=== PATIENT | male | born 1970 | race Asian ===

== ENCOUNTER 2020-02-16 08:38 | Outpatient (CLI) | payer OTHER, SELFPAY ==
[2020-02-16 09:39] LABS: Cholesterol 135 mg/dL (0-200); HDL Direct 42 mg/dL; Triglycerides 151 mg/dL (<150)
[2020-02-16 09:50] LABS: LDL Cholesterol Direct 70 mg/dL
[2020-02-16 10:12] LABS: Prostate Specific Antigen 1.8 ng/mL (< OR = 4.0)
== END 2020-02-16 08:39 | disposition home or self-care (01) ==
PROVIDERS: PCP Physician Assistant; Visit Provider Physician Assistant
DX: Z00.00 Encounter for general adult medical examination without abnormal findings (principal); Z12.5 Encounter for screening for malignant neoplasm of prostate
CPT/HCPCS: 36415; 80061; 84153; 84443; G0103

== ENCOUNTER 2020-03-25 09:00 | Outpatient (RCR) | payer OTHER, SELFPAY ==
[2020-01-30 08:30] VITALS: BP_SYST 115
--- NOTE | 2020-01-30 09:27 | PTOPEVAL ---
PHYSICAL THERAPY EVALUATION AND PLAN OF CARE Thank you for referring Darwin Turpin to [facility] [place].? The patient is scheduled to be seen for therapy? 2x/week for 4-6 weeks. Please review, sign, date and return this plan of care DELPHINE. I agree with and certify that the following plan of care is medically necessary. Referring Physician Date Attending Provider: Kartik Zendejas, MD Evaluation Outpatient Past Medical History Gastrointestinal History Hx Crohn's Disease Yes: IV interventions Diagnosis tendonitis right biceps tendon , surgery Onset 01/17/2020 Subjective Information Darwin has had pain for about Query Text:As Reported By Patient/ a year without success for Family conservative intervention. Surgery on 01/17/20 and found long head of biceps tendon tear which was repaired and bone spurs were cleaned up with arthroscopy. Reports that he is doing really well. Wears sling when he is out. At home, he will use his arm carefully and currently has no restrictions. Right Shoulder Reported Pain Level 4 Pain Description Aching Pain Frequency Acute,Intermittent Lowest Pain Intensity 1 Greatest Pain Intensity 7 Other Pain Aggravating Factors raising arm up Pain Behaviors None Pain Relief Interventions Used By None Patient Interventions Used By Clinicians Ice Shoulder Range of Motion Right Shoulder Flexion - Active 80 Shoulder Flexion - Passive 130 Shoulder Abduction - Active 70 Shoulder Abduction - Passive 115 Shoulder Medial Rotation - Active L1 Query Text:Reach Behind the Back Shoulder Lateral Rotation - Active 45 Shoulder Lateral Rotation - Passive 55 Shoulder Lateral Rotation - Active [place] Query Text:Reach Behind the Head Shoulder Strength Right Shoulder Flexion Strength 3- Fair - Shoulder Extension Strength 4- Good - Shoulder Abduction Strength 3- Fair - Shoulder Medial Rotation Strength 4+ Good + Shoulder Lateral Rotation Strength 4- Good - Posture Sitting Position Posture Evaluation View Anterior Shoulder Posture (L) Forward,(R) Forward Scapula Posture (L) Depressed,(R) Depressed Arm Posture (L) Neutral,(R) Neutral PT Clinical Summary Darwin is a 49 yo male presenting to outpatient physical therapy presenting 2
--- NOTE | 2020-02-26 15:19 | PTOPEVAL ---
PHYSICAL THERAPY PLAN OF CARE UPDATE AND PROGRESS REPORT Thank you for referring Darwin Turpin to [facility].? The patient is scheduled to be seen for therapy? 2x/week for 2 weeks and 1x/week for 2 weeks. Please review, sign, date and return this plan of care DELPHINE. I agree with and certify that the following plan of care is medically necessary. Referring Physician Date Attending Provider: Kartik Zendejas, MD Assessment Status Progress Outpatient Past Medical History Gastrointestinal History Hx Crohn's Disease Yes: IV interventions Evaluation Information Problem Diagnosis tendonitis right biceps tendon , surgery Onset 01/17/2020 Subjective Information Darwin reports most daily Query Text:As Reported By Patient/ activities are without trouble Family . 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 Self Report Pain Assessment Right Shoulder(s) Reported Pain Level 3 Pain Description Soreness Pain Score Pain Score 3: Self Report Upper Extremity Range of Motion Scapular/ Shoulder Range of Motion Right Shoulder Flexion - Active 150 Shoulder Abduction - Active 140 Shoulder Medial Rotation - Active T7 Query Text:Reach Behind the Back Shoulder Lateral Rotation - Active 56 Shoulder Lateral Rotation - Active T3 Query Text:Reach Behind the Head Upper Extremity Muscle Strength Testing Scapular/Shoulder Right Shoulder Flexion Strength 4+ Good + Shoulder Abduction Strength 4+ Good + Shoulder Medial Rotation Strength 5 Normal Shoulder Lateral Rotation Strength 5 Normal Posture Sitting Position Posture Evaluation View Anterior Shoulder Posture (L) Forward,(R) Forward Scapula Posture (L) Depressed,(R) Depressed Arm Posture (L) Neutral,(R) Neutral Palpation demonstrates posterior capsule tightness that reduces after manual therapy; incision sites appear clean and healed - did instruct patient in scar massage to reduce scar puckering - noted that there is a very small open at proximal end of incision in axillary fold. Instructed in monitoring and maintaining cleanliness. PT Clinical Summary Darwin is a 49 yo male
--- NOTE | 2020-03-25 09:39 | PTOPEVAL ---
PHYSICAL THERAPY DISCHARGE NOTE Thank you for referring Darwin Turpin to [facility].? Please review, sign, date and return this plan of care DELPHINE. I agree with and certify that the following plan of care is medically necessary. Referring Physician Date Attending Provider: Kartik Zendejas, MD Discharge Self Report Self Report Pain Level 0 Pain Score Pain Score 0: Self Report Upper Extremity Range of Motion Scapular/ Shoulder Range of Motion Right Shoulder Flexion - Active 165 Shoulder Abduction - Active 163 Shoulder Medial Rotation - Active T7 Query Text:Reach Behind the Back Shoulder Lateral Rotation - Active 69 Shoulder Lateral Rotation - Active T3 Query Text:Reach Behind the Head Upper Extremity Muscle Strength Testing Scapular/Shoulder Right Shoulder Flexion Strength 5 Normal Shoulder Abduction Strength 5 Normal Shoulder Medial Rotation Strength 5 Normal Shoulder Lateral Rotation Strength 5 Normal Posture Posture Sitting Position Posture Evaluation View Anterior Shoulder Posture Neutral Scapula Posture (L) Neutral,(R) Neutral Arm Posture (L) Neutral,(R) Neutral PT Clinical Summary Darwin has met his functional and strength goals at this time following biceps tendon tenodesis. His strength measures 5/5 throughout all planes and his ROM is WNL. I recommend d/c from PT at this time, continuing HEP for a month followed up by a recreational exercise program. PT Services Indicated No Potential Barriers to Goal Achievements None Support Requirements For Optimal None [place] Patient/Caregiver Informed of Benefits/ Yes Risks of Rehabilitation Patient/Caregiver Participated in Plan Yes of Care Patient/Caregiver Agreed with Problem Yes List/POC/Goals
== END 2020-03-25 10:36 | disposition home or self-care (01) ==
LOC: ANHPT 09:00
PROVIDERS: PCP Physician Assistant; Visit Provider Orthopaedic Surgery Orthopaedic Surgery of the Spine
DX: M75.81 Other shoulder lesions, right shoulder (principal); M75.21 Bicipital tendinitis, right shoulder
CPT/HCPCS: 97110; 97140; 97161

== ENCOUNTER 2020-12-17 18:27 | Outpatient (CLI) | payer OTHER, SELFPAY ==
--- NOTE | ~2020-12-17 | XR_ITS ---
EXAMINATION: XR chest 2V EXAM DATE: 12/17/2020 18:43 INDICATION: R05 - Cough, wheezing, tired. Symptoms one week. TECHNIQUE: Frontal and lateral projections of the chest obtained and reviewed. Comparison is made to prior examination from 08/17/2016. FINDINGS: Cervical fusion hardware. The lungs are clear. There are no pleural effusions. The cardio mediastinal silhouette is within normal limits. There is no pneumothorax suspected. The bones and s oft tissues are unremarkable. IMPRESSION: No acute cardiopulmonary findings. Reviewed, dictated and finalized at location G.
== END 2020-12-17 18:28 | disposition home or self-care (01) ==
LOC: ANHIMG 18:29
PROVIDERS: PCP Physician Assistant; Visit Provider Physician Assistant
DX: R05 Cough (principal); Z98.1 Arthrodesis status
CPT/HCPCS: 71046

== ENCOUNTER 2021-06-04 09:07 | Outpatient (RCR) | payer OTHER, SELFPAY ==
[2021-06-04] MEDS: diphenhydrAMINE HCl CAP 25 MG CAPSULE PO (15:20)
[2021-06-04] MEDS: FAMOTIDINE 20 MG TABLET PO (15:20)
[2021-06-04] MEDS: ACETAMINOPHEN 325 MG TABLET 650 MG PO (15:20)
[2021-06-04 15:24] VITALS: BP 163/89; PULSE 84; RESP 18; TEMP 37.2; O2SAT 98
[2021-06-04 16:53] VITALS: BP 154/90
== END 2021-06-04 17:00 ==
LOC: AMCINF 09:07
PROVIDERS: PCP Physician Assistant; Referring Provider Physician Assistant; Visit Provider Internal Medicine Hematology & Oncology
DX: U07.1 COVID-19 (principal); D84.9 Immunodeficiency, unspecified
CPT/HCPCS: A9270; M0247; Q0247

== ENCOUNTER 2022-06-08 09:29 | Outpatient (CLI) | payer OTHER, SELFPAY ==
--- NOTE | ~2022-06-08 | XR_ITS ---
EXAMINATION: XR cervical spine 4-5V DATE: 06/08/2022 09:44 INDICATION: Cervical radiculopathy. Left-sided numbness. TECHNIQUE: 4 views of cervical spine were obtained. COMPARISON: None. FINDINGS: Bone alignment is normal. There are changes of anterior fusion procedure from C5 to C7 with healed interbody bone graft and anterior plate and screws. Vertebral body heights are normal. There is mildly decreased disc height at C4-C5. The facet joints are unremarkable. At C4-C5, there is sever e right and mild left uncovertebral joint osteoarthritis. There is mild central canal stenosis at C4- C5. No prevertebral soft tissue swelling. IMPRESSION: 1. Mild cervical spondylosis. 2. Anterior fusion procedure from C5 to C7. Reviewed, dictated and finalized at location A. 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
== END 2022-06-08 09:30 | disposition home or self-care (01) ==
PROVIDERS: PCP Physician Assistant; Visit Provider Physician Assistant
DX: M47.22 Other spondylosis with radiculopathy, cervical region (principal); Z98.1 Arthrodesis status
CPT/HCPCS: 72050

== ENCOUNTER 2022-07-22 09:48 | Outpatient (CLI) | payer OTHER, SELFPAY ==
--- NOTE | 2022-07-22 10:45 | NEURO_ITS ---
Impression: # Complains of left upper extremity discomfort. # No Carpal Tunnel Syndrome or ulnar neuropathy. # Needle/EMG exam neurogenic in left triceps muscle. # Clinical correlation recommended; Findings suggestive of Higher involvement. Motor Nerve Conduction Upper Extremities Median Nerve Conduction Velocity (m/sec) Terminal Latency (msec) Response Voltage(mV) Elbow-Wrist Wrist Elbow Wrist Right Left 53 3.1 1 1 Ulnar Nerve Conduction Velocity (m/sec) Terminal Latency (msec) Response Voltage(mV) Above Elbow Below Elbow Wrist Above Elbow Below Elbow Wrist Right Left 57 2.8 3 4 F-Wave Latency Median (ms) Ulnar (ms) Right Left 29.1 30.6 Sensory Nerve Conduction Upper Extremities Median Nerve Stimulation Terminal Latency (msec) Wrist/Digit Response Voltage (uV) Wrist Right Left 2.6/2.5 33/52 Ulnar Nerve Stimulation Terminal Latency (msec) Wrist/Digit Response Voltage (uV) Wrist Right Left 2.3 52 Radial Nerve Terminal Latency (msec) Response Voltage(mV) Right Left 1.6 23 Left Right Muscles Examined Fibrillation Fasciculation Scarcity Voltage Duration Left Right Left Right Left Right Left Right Left Right X Deltoid X Biceps X Brachioradialis X Triceps one plus scarciyy increased X Pronator Teres X Ext Indicis X Ext Digitorum X Abd Poll Brev X 1st Dorsal Interosseus X Abd Dig Min MTDD
== END 2022-07-22 09:49 | disposition home or self-care (01) ==
PROVIDERS: PCP Physician Assistant; Visit Provider Physician Assistant
DX: M54.12 Radiculopathy, cervical region (principal)
CPT/HCPCS: 95886; 95909

== ENCOUNTER 2022-08-17 10:00 | Outpatient (CLI) | payer OTHER, SELFPAY ==
--- NOTE | ~2022-08-17 | MR_ITS ---
MRI of the cervical spine Clinical History: Neurogenic triceps muscle Technique: Axial T2-weighted and gradient images, and sagittal T1-weighted, T2-weighted, and STIR leha ges were acquired. Findings: There is no acute fracture or subluxation of the cervical spine. There is anterior fusion f rom C5 to C7, anterior plate and fixation screws present. Probable fusion across the C5-C6 and C6-C7 disc spaces. No suspicious bone marrow signal abnormality seen. At C2-C3, there is no disc bulge or herniation. No spinal canal stenosis, cord compression, or neural foraminal narrowing. At C3-C4, there is minimal disc osteophyte complex. No spinal canal stenosis, cord compression, or de finite neural foraminal narrowing. At C4-C5, there is disc osteophyte complex with mild canal stenosis and flattening the ventral cord. There is bilateral neural foraminal narrowing, right worse than left. At C5-C6, there is no disc bulge or herniation. No spinal canal stenosis, cord compression, or neural foraminal narrowing. At C6-C7, there is no disc bulge or herniation. No spinal canal stenosis, cord compression, or neural foraminal narrowing. At C7-T1, there is disc protrusion at the left foraminal and left paracentral region, resulting in mi ld ventral cord flattening and severe left neural foraminal. There is probable mild right neural fora ant narrowing. No abnormal signal clearly evident in the spinal cord. Paravertebral soft tissues are unremarkable. Impression: Anterior fusion from C5 to C7, as detailed above. Mild flattening of ventral cord at C4-C5 with bilateral neural foraminal narrowing, related to disc o steophyte complex. Disc protrusion at the left paracentral left foraminal region at C7-T1, resulting in minimal ventral cord flattening and severe left neural foraminal narrowing. Reviewed, dictated and finalized at location . Impression: Anterior fusion from C5 to C7, as detailed above. Mild flattening of ventral cord at C4-C5 with bilateral neural foraminal narrow ing, related to disc osteophyte complex. Disc protrusion at the left paracentral left foraminal region at C7-T1, resulti ng in minimal ventral cord flattening and severe left neural foraminal narrowin g.
== END 2022-08-17 10:01 | disposition home or self-care (01) ==
PROVIDERS: PCP Physician Assistant; Visit Provider Physician Assistant
DX: M62.89 Other specified disorders of muscle (principal); Z98.1 Arthrodesis status; M50.20 Other cervical disc displacement, unspecified cervical region
CPT/HCPCS: 72141

== ENCOUNTER 2022-10-04 08:21 | Outpatient (CLI) | payer OTHER, SELFPAY ==
--- NOTE | 2022-10-25 22:40 | WPDSLEEPSTUD ---
Sleep Study Date of Study: 10/04/22 Ordering Provider: CRISTIANE King Interpreting Physician: Brandie Paul MD Sleep Study Type: Split Polysomnogram Height: 1.75 m Weight: 126.552 kg Body Mass Index: 41.2 Neck Circumference (inches): 16.5 [place]: 10 Reason for Sleep Study Daytime hypersomnia. History of obstructive sleep apnea diagnosed around 10 years ago and stopped wearing CPAP around 6 or 7 years ago after losing 60 lb. He has gained some of this weight back and has been dealing with snoring and daytime hypersomnia. Sleep History Darwin Turpin is a 51-year-old man with snoring and daytime sleepiness. He occasionally awakens from sleep short of breath. He frequently awakens at night with heartburn, belching or cough.? He constantly snores and snores loudly enough that others complain. He occasionally has trouble sleeping when he has a cold. He occasionally wakes up gasping for breath during the night. He constantly has breathing problems at night. He does not sweat excessively at night. He does not notice his heart pounding or beating irregularly during the night. He rarely falls asleep during the day. He rarely falls asleep involuntarily and never falls asleep while driving. He never experiences loss of muscle tone with strong emotion. He never feels paralyzed on waking or falling asleep. He never experiences vivid dreams upon waking or falling asleep. He does not feel afraid of going to sleep. He rarely has nightmares. He occasionally recalls his dreams. He frequently has thoughts racing through his mind. He rarely feels sad or depressed. He occasionally feels anxiety or worry about things. He rarely notices parts of his body jerk. He does not kick during the night. He does not feel crawling or aching feelings in his legs and does not feel leg pain at night. He does not grind his teeth during sleep or have morning jaw pain. He occasionally feels bothered by pain during the day and is rarely awakened by pain during the night. He does not wake up feeling stiff, sore, or achy in the morning. He occasionally wakes with pain in his neck, spine, or joints. Normal bedtime is around 11:30 pm on the weekdays and the 12am to 1am on the weekends, usually falling asleep within 30 minutes. He typically gets about 6 to 7 hours of sleep per night. His wake up time is around 6:30am to 7 am on the weekdays and 8 am to 8:30 am on the weekends. He typically wakes up 1 time per night for around a few minutes and might go to the bathroom or take a Tums for reflux.? He takes naps in the afternoon or evening around once per week. Naps never feel refreshing for him. Habits:? Never tobacco smoker. He drinks 1 to 2 caffeinated beverages per day. No alcohol or recreational substance use.? [facility] Family History Family History Father Patient's father is in good health Family history of diabetes mellitus in first degree relative Sibling Family history of rheumatoid arthritis Family history of diabetes mellitus in first degree relative Mother Family history of hepatitis Social History Social History Social History: He is a never smoker. No alcohol, marijuana, or illicit substance use. 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 Lives at home with his . Smoking status: Never smoker Second hand tobacco smoke exposure: No Alcohol intake: never Lack of Transportation: No Lack of Food: Never True Current Housing: I Have Housing Concerned About Future Housing: No Difficulty Paying Gas/Electric Bills: No Difficulty Paying for Meds: No Currently Unemployed: No Education: Master's Degree or Higher Difficulty w/ Childcare or Family Care: No Medications Home Medications Medication Instructions Recorded Confirmed Type ascorbic acid (vitamin C) 500 mg 500 mg PO DAILY 06/04/21 09/28/22 History tablet (Vitamin C) tamsulosin 0.4 mg c
[2022-10-26 08:36] VITALS: BMI 41.2
== END 2022-10-05 06:20 | disposition home or self-care (01) ==
LOC: ANHCSM 08:22
PROVIDERS: PCP Physician Assistant; Visit Provider Physician Assistant
DX: G47.33 Obstructive sleep apnea (adult) (pediatric) (principal)
CPT/HCPCS: 95811

== ENCOUNTER 2022-11-02 09:00 | Outpatient (RCR) | payer OTHER, SELFPAY ==
--- NOTE | 2022-08-30 16:36 | PTOPEVAL1 ---
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 Pt reports an MRI and nerve conduction testing show normal peripheral nerves but compression on the proximal nerve roots. Reported Pain Level Pain Score 4,5: Self Report Assessment PT Clinical Summary Darwin presents to therapy today for his initial evaluation with a diagnosis of cervical stenosis. Today he demonstrations minor decreased active ROM in his cervical spinal in all direction, passive motion of cervical and thoracic spinal were felt to be WNL. Pt demonstrates a significant cervical protraction with upper cervical hyperextension. Cues to correct posture instantly decreased symptoms. Skilled physical therapy services are indicated to improve body awareness, postural endurance, scapular strength, to reduce peripheral symptoms, and to return to baseline function. Plan of Care Interventions Electrical Stimulation,Hot Pack/Cold Pack,Manual Therapy,Mechanical Traction,Neuro Re-education, Patient/Caregiver Educati,Therapeutic Activities, Therapeutic Exercise PT Services Indicated Yes Treatment Frequency and 1x/wk for 4 wks Duration These treatments will address the objective and functional deficits as defined above. The patient will be advanced safely and appropriately in order for the patient to progress towards his/her prior level of function. Additional exercises will be introduced and as well as a comprehensive home exercise program upon discharge, if needed, ?to ensure carryover of functional gains achieved in the clinic. This treatment plan has been reviewed and agreement upon by the patient.
--- NOTE | 2022-09-21 08:00 | PCPTNOTE ---
Patient canceled per patient request. No reason giving.
--- NOTE | 2022-09-28 13:24 | PTOPPROG ---
Assessment and note entered by Diana Joshua, PT, DPT Evaluation Information Assessment Status Progress Diagnosis cervical stenosis Onset 4 months Subjective Information Pt states his baseline pain has decreased from his initial visit. He states his episodic pain and numbness remain unchanged. Pt reports he no long has to hang weights from his wrist to decreased L shoulder/neck pain in order to sleep. Pt reports about 40% improvement. Assessment PT Clinical Summary Darwin presents to therapy today for his progress report following 3 visits of skilled physical therapy to treat his neck pain with L sided radiculopathy. Today he demonstrates improved cervical ROM with decreased neck pain at rest. He does not report any improvements in peripheral symptoms thus far. Continuation of skilled services are indicated to continue progressing cervical strength, postural awareness, and body mechanics, and to return to functional baseline. Plan of Care Interventions Electrical Stimulation,Hot Pack/Cold Pack,Manual Therapy,Mechanical Traction,Neuro Re-education, Patient/Caregiver Educati,Therapeutic Activities, Therapeutic Exercise PT Services Indicated Yes Treatment Frequency and 1x/wk for 4 wks Duration These treatments will address the objective and functional deficits as defined above. The patient will be advanced safely and appropriately in order for the patient to progress towards his/her prior level of function. Additional exercises will be introduced and as well as a comprehensive home exercise program upon discharge, if needed, ?to ensure carryover of functional gains achieved in the clinic. This treatment plan has been reviewed and agreement upon by the patient.
--- NOTE | 2022-10-07 15:27 | PCPTNOTE ---
Patient called at time of appointment and states he will not be able to make it to appointment due to work conflict.
--- NOTE | 2022-11-02 09:56 | PTOPPROG ---
Assessment and note entered by Diana Joshua, PT, DPT Evaluation Information Assessment Status Discharge Diagnosis cervical stenosis Onset 4 months Subjective Information Pt states traction has been the most beneficial thing for his pain. He reports the numbness in his L hand has remained unchanged. He states after traction he will get about 3 days of relief where he can move his head in all directions mostly pain free. He was given an order from a neurosurgeon for a home traction device. Assessment PT Clinical Summary Darwin presents to therapy today for his progress report following 8 visits of skilled physical therapy to treat his neck pain with L sided radiculopathy. Today he demonstrates minimal improvements of her cervical ROM, he reports no improvements in his numbness. He followed up with a neurosurgeon and his plan is to get a home traction unit verses continuing with in person therapy. Pt will be discharged following approval of, and education on home traction unit. Another treatment may be done for education of company does not provide any. Plan of Care Interventions Electrical Stimulation,Hot Pack/Cold Pack,Manual Therapy,Mechanical Traction,Neuro Re-education, Patient/Caregiver Educati,Therapeutic Activities, Therapeutic Exercise Treatment Frequency and to be discharged following issue and instruction Duration on home traction unit These treatments will address the objective and functional deficits as defined above. The patient will be advanced safely and appropriately in order for the patient to progress towards his/her prior level of function. Additional exercises will be introduced and as well as a comprehensive home exercise program upon discharge, if needed, ?to ensure carryover of functional gains achieved in the clinic. This treatment plan has been reviewed and agreement upon by the patient.
--- NOTE | 2022-11-25 08:31 | PCPTNOTE ---
Called to follow up if pt has received traction unit. D/c is pending receipt of machine.
== END 2022-11-28 23:59 | disposition home or self-care (01) ==
LOC: ANHGOSHPT 09:00
PROVIDERS: PCP Physician Assistant; Visit Provider Physician Assistant
DX: M48.02 Spinal stenosis, cervical region (principal)
CPT/HCPCS: 97012; 97110; 97112; 97140; 97161; 97530